=== PATIENT | male | born 1935 | race Caucasian/White ===

== ENCOUNTER → 2019-07-04 | Outpatient (CLI) | payer MEDICARE, MEDICAID ==
[~2019-07-04] MED LIST: ASPI-986 PO; CLOP75TA15 PO; CRES10 PO; DIATR MEGLU/DIATRIZOATE SOLN 120ML ONE; INSU100I28 SQ; METF-416 PO; RAMI10CA19 PO; TAMS0.4C31 PO
== END | disposition home or self-care (01) ==
LOC: RAD 09:12
PROVIDERS: ATTEND Surgery
DX: Z43.3 Encounter for attention to colostomy (principal); K63.1 Perforation of intestine (nontraumatic)
CPT/HCPCS: 74270; Q9963; A4315

== ENCOUNTER 2020-03-13 11:41 | Inpatient (IN) | payer MEDICARE, MEDICAID ==
[~2020-03-13] VITALS: Ht 157.5 cm; Wt 81.7 kg
[~2020-03-13 11:41] MED LIST changes: -DIATR MEGLU/DIATRIZOATE SOLN 120ML ONE; -RAMI10CA19 PO; +RAMI10CA68 PO
[2020-03-13] MEDS ORDERED: SODIUM CHLORIDE 0.9% 1,000 ML IV ONE (12:49)
[2020-03-13] MEDS ORDERED: PIPERACILLIN/TAZ 3.375G PREMIX 50 ML IV ONE (13:00)
[2020-03-13] MEDS ORDERED: VANCOMYCIN 1 G PREMIX 200 ML IV ONE (13:00)
[2020-03-13 14:04] LABS: BASOPHILS % 0.8 % (0.0-2.0); EOSINOPHILS % 4.2 % (0.0-5.0); HEMATOCRIT. 39.8 % (42.0-52.0); HEMOGLOBIN. 13.6 g/dL (14.0-18.0); LYMPHOCYTES % 21.7 % (20.0-50.0); MEAN CORPUSCULAR HEMOGLOBIN 29.6 pg (28.0-32.0); MEAN CORPUSCULAR VOLUME 86.4 fL (80.0-94.0); MEAN PLATELET VOLUME 8.8 fl (7.4-10.4); MONOCYTES % 7.7 % (2.0-8.0); NEUTROPHILS % 65.6 % (40.0-76.0); PLATELET 170 x1000/uL (130-400); RED CELL DISTRIBUTION WIDTH 15.3 % (11.6-14.6)
[2020-03-13 14:05] LABS: PROTHROMBIN TIME 10.9 sec (9.6-11.0)
[2020-03-13 15:54] LABS: CHLORIDE 106 mEq/L (98-107)
[2020-03-13 16:00] LABS: C REACTIVE PROTEIN QUANT 4.4 mg/L (0.0-3.0)
[2020-03-13 18:11] LABS: CLARITY URINE CLOUDY (CLEAR); COLOR URINE YELLOW (YELLOW); KETONES URINE NEGATIVE (NEGATIVE); LEUKOCYTE ESTERASE URINE 3+ (NEGATIVE); NITRITE URINE POSITIVE (NEGATIVE); OCCULT BLOOD URINE NEGATIVE (NEGATIVE); PH URINE 5.5 (4.5-8.0); PROTEIN URINE TRACE (NEGATIVE); SPECIFIC GRAVITY URINE 1.021 (1.005-1.030); UROBILINOGEN URINE 0.2 E.U./dL (0.2-1.0)
[2020-03-13] MEDS ORDERED: PIPERACILLIN/TAZ 3.375G PREMIX 50 ML IV SCH ×2 (19:30→20:00)
[2020-03-13] MEDS ORDERED: VANCOMYCIN 1 G PREMIX 200 ML IV SCH (19:30)
[2020-03-13] MEDS ORDERED: ACETAMINOPHEN 325MG TABLET PO PRN ×2 (19:30)
[2020-03-13] MEDS ORDERED: DIPHENHYDRAMINE 50MG/ML VIAL IV PRN (19:30)
[2020-03-13] MEDS ORDERED: MAGNESIUM/ALUMINUM HYDROXIDE/SIMETHICONE 30ML UDC PO PRN (19:30)
[2020-03-13] MEDS ORDERED: ZOLPIDEM TARTRATE 5MG TABLET PO PRN (19:30)
[2020-03-13] MEDS ORDERED: CLONIDINE 0.1MG TABLET PO PRN (19:30)
[2020-03-13] MEDS ORDERED: ONDANSETRON HCL 4MG/2ML INJ IV PRN (19:30)
[2020-03-13] MEDS: SODIUM CHLORIDE 0.9% INJ 3ML FLUSH IVF SCH (22:08)
[2020-03-14] VITALS: BP 166/61
[2020-03-14] MEDS ORDERED: PIPERACILLIN/TAZOBACTAM 2.25 G in DEXTROSE 5% WATER 50 ML IV SCH (02:00)
[2020-03-14] MEDS: SODIUM CHLORIDE 0.9% INJ 3ML FLUSH IVF SCH ×2 (05:48→14:00)
[2020-03-14] MEDS ORDERED: DEXTROSE 50% WATER 50ML SYRINGE IV PRN (06:00)
[2020-03-14] MEDS ORDERED: VANCOMYCIN 1 G PREMIX 200 ML IV SCH ×2 (06:00)
[2020-03-14] MEDS: BLOOD SUGAR DIAGNOSTIC STRIP TEST SCH ×3 (07:03→17:20)
[2020-03-14] MEDS: INSULIN LISPRO 100 UNITS/ML SUBCUT SCH ×3 (07:04→17:50)
[2020-03-14 08:00] VITALS: BP 123/62
[2020-03-14] MEDS ORDERED: ENOXAPARIN 40MG/0.4ML SYR SUBCUT SCH (09:00)
[2020-03-14 12:00] VITALS: BP 125/56
[2020-03-14 16:00] VITALS: BP 133/60
[2020-03-14 18:29] VITALS: BP 133/60
== END 2020-03-14 18:46 | disposition home or self-care (01) | DRG 565 ==
LOC: ER 11:41 → MICUSO 15:51 → EDBEDREQ 15:52 → 6EST 22:59
PROVIDERS: ADMIT Internal Medicine; ATTEND Internal Medicine
DX: T87.89 Other complications of amputation stump (principal); L02.415 Cutaneous abscess of right lower limb; Z96.651 Presence of right artificial knee joint; E11.51 Type 2 diabetes mellitus with diabetic peripheral angiopathy without gangrene; I10 Essential (primary) hypertension; I25.10 Atherosclerotic heart disease of native coronary artery without angina pectoris; M85.661 Other cyst of bone, right lower leg; K57.90 Diverticulosis of intestine, part unspecified, without perforation or abscess without bleeding; Y83.5 Amputation of limb(s) as the cause of abnormal reaction of the patient, or of later complication, without mention of misadventure at the time of the procedure; Z93.3 Colostomy status; Z95.0 Presence of cardiac pacemaker; Z85.46 Personal history of malignant neoplasm of prostate; Y92.89 Other specified places as the place of occurrence of the external cause; Z79.899 Other long term (current) drug therapy; Z79.84 Long term (current) use of oral hypoglycemic drugs; Z79.82 Long term (current) use of aspirin; Z79.02 Long term (current) use of antithrombotics/antiplatelets; L72.9 Follicular cyst of the skin and subcutaneous tissue, unspecified
CPT/HCPCS: 36415; 73560; 80053; 81003; 82962; 83036; 83605; 84145; 85025; 85651; 86140; 87077; 87186; 93005; 93971; 96365; 99285; J1650; J2543; J3370; J7030; J7060

== ENCOUNTER → 2020-04-08 | Outpatient (CLI) | payer MEDICARE, MEDICAID ==
[~2020-04-08] MED LIST changes: +DIATR MEGLU/DIATRIZOATE SOLN 30ML ONE
== END | disposition home or self-care (01) ==
LOC: RAD 10:06
PROVIDERS: ATTEND Surgery
DX: N32.1 Vesicointestinal fistula (principal)
CPT/HCPCS: 74270; Q9963